=== PATIENT | male | born 1965 | race Caucasian/White ===

== ENCOUNTER 2022-08-10 05:32 | Day surgery (SDC) | payer BC, MEDICAID, SELFPAY ==
[2022-08-08 10:06] VITALS: BMI 28.1
[2022-08-10 06:07] VITALS: BP 154/95; PULSE 104; RESP 16; TEMP 36.4; O2SAT 97
[2022-08-10] MEDS: sodium chloride 0.9% 1,000 ML 30 ML IV (06:16)
[2022-08-10 06:20] LABS: Glucose Point of Care 277 mg/dL (70-110)
--- NOTE | 2022-08-10 06:54 | P.ANESASSM_ITS ---
Pre-Anesthetic Assessment Height/Weight: Height 1.7 m Weight 81.647 kg Temp Pulse Resp BP Pulse Ox O2 Del Method 97.5 F L 104 H 16 154/95 97 Room Air 08/10/22 06:07 08/10/22 06:07 08/10/22 06:07 08/10/22 06:07 08/10/22 06:07 08/10/22 06:07 Preop Diagnosis: screening Operation Date: 08/10/22 07:30 Proposed Procedures p 94261 Colon Z12.11(Not Applicable) - Merlin Morrell, DO Was Beta Vanda taken within 24 hours: N/A Was Clonidine taken within 24 hours: N/A Last intake: Intake Last Liquid Date 08/09/22 Last Liquid Time 22:30 Last Solid Date 08/08/22 Last Solid Time 18:00 Social Tobacco 1 ppd pack(s) per day Exam alert and oriented x 3 Airway Submandibular: Other (small mouth opening from childhood jaw surgery) Cervical ROM: within normal limits Mallampati: Class III Dentition: full History/ROS No significant history except as noted Pulmonary Chronic Obstructive Pulmonary Disease CV/HEM Hypertension None reported Hepatic None reported GI Gastroesophageal Reflux Disease (meds effective) Metabolic Diabetes Mellitus [facility] [place] None reported Neuropsych None reported Anesthetic Plan ASA status: 3 Anesthesia: MAC Risk of > 500 ml blood loss (7ml/kg in children): No Medications/Allergies Home Medications Medication Instructions Recorded Confirmed Last Taken Type amlodipine 5 mg tablet 5 mg PO DAILY 07/14/22 08/10/22 08/10/22 History bupropion HCl 300 mg 24 hr tablet, 300 mg PO DAILY 07/14/22 08/10/22 08/09/22 History extended release insulin degludec 100 unit/mL (3 25 unit SUBCUT DAILY 07/14/22 08/10/22 08/09/22 History mL) subcutaneous pen (Tresiba FlexTouch U-100 insulin) insulin regular human 100 unit/mL See Rx Instructions .Route .COMPLEX 07/14/22 08/10/22 08/09/22 History injection solution (Humulin R Regular U-100 Insulin) losartan 50 mg tablet 50 mg PO DAILY 07/14/22 08/10/22 08/09/22 History omeprazole 20 mg capsule,delayed 20 mg PO DAILY 07/14/22 08/10/22 08/09/22 History release spironolactone 25 mg tablet 25 mg PO DAILY 07/14/22 08/10/22 08/09/22 History cephalexin 500 mg capsule 500 mg PO TID 08/08/22 08/10/22 08/09/22 History dicyclomine 10 mg capsule 10 mg PO TID 08/08/22 08/10/22 08/09/22 History pantoprazole 40 mg tablet,delayed 40 mg PO BID 08/08/22 08/10/22 08/09/22 History release sucralfate 1 gram tablet (Carafate) 1 g PO QID 08/08/22 08/10/22 08/09/22 History Allergies Allergy/AdvReac Type Severity Reaction Status Date / Time No Known Allergies Allergy Unverified 08/10/22 06:05 Current Medications Generic Name Dose Route Start Last Admin Trade Name Freq PRN Reason Stop Dose Admin Sodium Chloride 1,000 mls @ 30 mls/hr 08/10/22 06:00 08/10/22 06:16 Sodium Chloride 0.9% IV 08/11/22 05:59 30 mls/hr .Q24H MELECIO Administration Data Anesthesia Cardiac Studies: No Data to Display
--- NOTE | 2022-08-10 07:36 | PM.HP ---
Providers/Chief Complaint Primary Care Provider: SHAHLA Landa Chief Complaint: Z12.11 History of Present Illness Yuniel Shields is a 57 year old male Here for his first screening colonoscopy. He denies any family history of colon cancer, abdominal pain, nausea, emesis, diarrhea, constipation, hematochezia and/or melena. Medications/Allergies Home Medications Medication Instructions Recorded Confirmed Last Taken Type amlodipine 5 mg tablet 5 mg PO DAILY 07/14/22 08/10/22 08/10/22 History bupropion HCl 300 mg 24 hr tablet, 300 mg PO DAILY 07/14/22 08/10/22 08/09/22 History extended release insulin degludec 100 unit/mL (3 25 unit SUBCUT DAILY 07/14/22 08/10/22 08/09/22 History mL) subcutaneous pen (Tresiba FlexTouch U-100 insulin) insulin regular human 100 unit/mL See Rx Instructions .Route .COMPLEX 07/14/22 08/10/22 08/09/22 History injection solution (Humulin R Regular U-100 Insulin) losartan 50 mg tablet 50 mg PO DAILY 07/14/22 08/10/22 08/09/22 History omeprazole 20 mg capsule,delayed 20 mg PO DAILY 07/14/22 08/10/22 08/09/22 History release spironolactone 25 mg tablet 25 mg PO DAILY 07/14/22 08/10/22 08/09/22 History cephalexin 500 mg capsule 500 mg PO TID 08/08/22 08/10/22 08/09/22 History dicyclomine 10 mg capsule 10 mg PO TID 08/08/22 08/10/22 08/09/22 History pantoprazole 40 mg tablet,delayed 40 mg PO BID 08/08/22 08/10/22 08/09/22 History release sucralfate 1 gram tablet (Carafate) 1 g PO QID 08/08/22 08/10/22 08/09/22 History Allergies Allergy/AdvReac Type Severity Reaction Status Date / Time No Known Allergies Allergy Unverified 08/10/22 06:05 Vitals/I&O/Wt Last Vital Signs Temp 97.5 F L 08/10/22 06:07 Pulse 104 H 08/10/22 06:07 Resp 16 08/10/22 06:07 BP 154/95 08/10/22 06:07 Pulse Ox 97 08/10/22 06:07 O2 Del Method Room Air 08/10/22 06:07 Weight last 48 hrs Weight 180 lb A&P Assessment and plan (1) Colon cancer screening: Plan Colonoscopy The risks and benefits of the procedure, including bleeding, infection, intestinal perforation requiring surgery, missed lesion were explained to the patient. The patient is understanding of the risks and wishes to proceed. Attestations Medical Necessity Statement*: home Coding Level of Care Code Acute Code for Chg Fwd Diagnoses Colon cancer screening Z12.11
[2022-08-10 08:15] VITALS: BP 141/96; PULSE 93; RESP 20; TEMP 36.3; O2SAT 99
[2022-08-10 08:22] VITALS: BP 160/97; PULSE 97; RESP 18; O2SAT 96
[2022-08-10 08:42] VITALS: BP 167/93; PULSE 88; RESP 16; O2SAT 100
--- NOTE | 2022-08-10 09:02 | PC.NURSE ---
Pt c/o no pain, has passed gas, abdomen soft and non-tender, bowel sounds active in four quadrants.
--- NOTE | 2022-08-10 14:22 | ANE.PACU2 ---
Inpatient post-anesthesia follow up: Airway intact: Yes Vital signs: Temperature 97.4 F Pulse Rate 88 Respiratory Rate 16 Blood Pressure 167/93 Pulse Oximetry 100 Oxygen Delivery Me thod Room Air Oxygen Flow Rate Fraction of Inspir ed Oxygen Hydration adequate: Yes Nausea and vomiting: No Pain level: 1 Mental status: Baseline
== END 2022-08-10 08:55 | disposition home or self-care (01) ==
PROVIDERS: PCP Nurse Practitioner; Visit Provider Surgery
PROC: 0DJD8ZZ Inspection of Lower Intestinal Tract, Via Natural or Artificial Opening Endoscopic (ICD-10-PCS; CPT 45378; principal; 2022-08-10 07:30)
DX: Z12.11 Encounter for screening for malignant neoplasm of colon (principal); J44.9 Chronic obstructive pulmonary disease, unspecified; I10 Essential (primary) hypertension; K21.9 Gastro-esophageal reflux disease without esophagitis; E11.9 Type 2 diabetes mellitus without complications; Z79.4 Long term (current) use of insulin; D12.2 Benign neoplasm of ascending colon; D12.5 Benign neoplasm of sigmoid colon; F17.200 Nicotine dependence, unspecified, uncomplicated
CPT/HCPCS: 36416; 45385; 82962; 88305; J2704; J7030

== ENCOUNTER → 2024-09-02 09:07 | Outpatient (BNVA) | payer BC, MEDICAID, SELFPAY | PROVIDERS: PCP Nurse Practitioner; Visit Provider Internal Medicine | DX: E10.9 Type 1 diabetes mellitus without complications (principal) | CPT/HCPCS: 80053; 80061; 82043; 83036 ==

== ENCOUNTER 2024-09-26 07:24 | Day surgery (SDC) | payer BC, MEDICAID, SELFPAY ==
[2024-09-26 07:36] VITALS: RESP 18; TEMP 36.6; BMI 29.7
--- NOTE | 2024-09-26 07:42 | W.PM.OPSFHP ---
Same Day Surgery H&P Indication for Procedure/HPI DATE OF PROCEDURE: September 26, 2024 CHIEF COMPLAINT/INDICATIONFOR SURGICAL PROCEDURE: history of colon polyps PREOP DIAGNOSIS: history of colon polyps PLANNED PROCEDURE: Operation Date: 09/26/24 08:50 Proposed Procedures p Colonoscopy 75148 G0105, Z12.11(Not Applicable) - Rolo Betancur MD Medications/Allergies* Home Medications ?Medication ?Instructions ?Recorded ?Confirmed ?Type amlodipine 5 mg tablet 5 mg PO DAILY 07/14/22 09/26/24 History bupropion HCl 300 mg 24 hr tablet, 300 mg PO DAILY 07/14/22 09/26/24 History extended release losartan 50 mg tablet 50 mg PO DAILY 07/14/22 09/26/24 History omeprazole 20 mg capsule,delayed 20 mg PO DAILY 07/14/22 09/26/24 History release spironolactone 25 mg tablet 25 mg PO DAILY 07/14/22 09/26/24 History dicyclomine 10 mg capsule 10 mg PO TID 08/08/22 09/26/24 History Allergies/Adverse Reactions Allergy/AdvReac Type Severity Reaction Status Date / Time No Known Allergies Allergy Verified 09/26/24 07:36 Pertinent History/Comorbid Conditions* Medical History (Updated 06/18/24 @ 22:24 by Desiree Tavera MD) Hyperlipemia, mixed DM type 1 (diabetes mellitus, type 1) Social History Smoking and tobacco/nicotine status: current every day tobacco/nicotine user Pertinent Exam Findings alert, oriented x 3, clear to auscultation bilaterally and regular rate & rhythm Recommendations Surgery/Procedure today Coding Level of Care Code Acute Code for Chg Fwd
--- NOTE | 2024-09-26 08:26 | ANES.PREANE2 ---
Pre-Anesthetic Assessment Height/Weight: Height 5 ft 7 in Weight 190 lb Temp Resp 97.8 F 18 09/26/24 07:36 09/26/24 07:36 Preop Diagnosis: history of colon polyps Operation Date: 09/26/24 08:50 Proposed Procedures p Colonoscopy 24520 G0105, Z12.11(Not Applicable) - Rolo Betancur MD Was Beta Vanda taken within 24 hours: N/A Was Clonidine taken within 24 hours: N/A Last intake: Intake Last Liquid Date 09/25/24 Last Liquid Time 21:00 Last Solid Date 09/25/24 Last Solid Time 19:00 Social Tobacco and No alcohol Exam alert, oriented x 3 and regular rate & rhythm Airway Submandibular: within normal limits Cervical ROM: within normal limits Mallampati: Class II Comments: Comments: Edentulous Anesthetic Plan ASA status: 3 Anesthesia: MAC Other: No prior issues with anesthesia Completed bowel prep History of hypertension on amlodipine and losartan IDDM, preop BS 158 Current smoker METs greater than 4 Plan for MAC anesthesia Medications/Allergies Home Medications ?Medication ?Instructions ?Recorded ?Confirmed ?Last Taken ?Type amlodipine 5 mg tablet 5 mg PO DAILY 07/14/22 09/26/24 09/26/24 History bupropion HCl 300 mg 24 hr tablet, 300 mg PO DAILY 07/14/22 09/26/24 09/25/24 History extended release losartan 50 mg tablet 50 mg PO DAILY 07/14/22 09/26/24 09/25/24 History omeprazole 20 mg capsule,delayed 20 mg PO DAILY 07/14/22 09/26/24 09/25/24 History release spironolactone 25 mg tablet 25 mg PO DAILY 07/14/22 09/26/24 09/25/24 History dicyclomine 10 mg capsule 10 mg PO TID 08/08/22 09/26/24 09/25/24 History insulin lispro 100 unit/mL See Rx Instructions .Route 08/22/24 09/26/24 09/26/24 Rx subcutaneous solution (Humalog .COMPLEX #50 mL U-100 Insulin) atorvastatin 20 mg tablet (Lipitor) 20 mg PO DAILY #90 tabs 09/23/24 09/26/24 09/25/24 Rx Allergies Allergy/AdvReac Type Severity Reaction Status Date / Time No Known Allergies Allergy Verified 09/26/24 07:36 Current Medications Generic Name Dose Route Start Last Admin Trade Name Freq PRN Reason Stop Dose Admin Sodium Chloride 1,000 mls @ 15 mls/hr 09/26/24 07:34 09/26/24 07:49 Sodium Chloride 0.9% IV 09/27/24 07:33 15 mls/hr .Q24H PRN Administration COLONOSCOPY FLUIDS PFSH Anesthesia Medical History Hyperlipemia, mixed DM type 1 (diabetes mellitus, type 1) Social History Smoking and tobacco/nicotine status: current every day tobacco/nicotine user
[2024-09-26 09:18] VITALS: BP 114/73; PULSE 82; RESP 18; TEMP 36.2; O2SAT 97
[2024-09-26 09:27] VITALS: BP 117/73; PULSE 93; RESP 18; TEMP 36.2; O2SAT 97
[2024-09-26 09:44] VITALS: BP 117/73; PULSE 93; RESP 18; TEMP 36.2; O2SAT 97
--- NOTE | 2024-09-26 09:54 | ANE.PACU2 ---
Inpatient post-anesthesia follow up: Airway intact: Yes Vital signs: Temperature 97.2 F Pulse Rate 93 Respiratory Rate 18 Blood Pressure 117/73 Pulse Oximetry 97 Oxygen Delivery Me thod Room Air Oxygen Flow Rate Fraction of Inspir ed Oxygen Hydration adequate: Yes Nausea and vomiting: No Pain level: 1 Mental status: Baseline
== END 2024-09-26 09:54 | disposition home or self-care (01) ==
PROVIDERS: PCP Nurse Practitioner; Visit Provider Surgery
PROC: 0DJD8ZZ Inspection of Lower Intestinal Tract, Via Natural or Artificial Opening Endoscopic (ICD-10-PCS; CPT 45378; principal; 2024-09-26 08:50)
DX: Z12.11 Encounter for screening for malignant neoplasm of colon (principal); D12.2 Benign neoplasm of ascending colon; D12.4 Benign neoplasm of descending colon; D12.5 Benign neoplasm of sigmoid colon; K62.1 Rectal polyp; D12.3 Benign neoplasm of transverse colon; E10.9 Type 1 diabetes mellitus without complications; I10 Essential (primary) hypertension; E78.2 Mixed hyperlipidemia; F17.200 Nicotine dependence, unspecified, uncomplicated; Z79.899 Other long term (current) drug therapy
CPT/HCPCS: 36416; 45380; 45385; 82962; 88305; J2704; J7030